=== PATIENT | male | born 1990 | race Caucasian/White ===

== ENCOUNTER 2016-05-15 09:48 | Emergency (ER) | payer MEDICAID ==
[2016-05-15 09:56] VITALS: BP 146/98
--- NOTE | 2016-05-15 10:01 | ED Physician Documentation ---
PD HPI LOWER EXT INJURY - Stated complaint Stated Complaint: LEFT LEG PX - Chief complaint Chief Complaint: Ext Problem - History obtained from History obtained from: Patient - History of Present Illness PD HPI LOW EXT INJURY LOCATION: Left, Lower leg, Calf Type of injury: Other (he walked from [facility] to [facility] yesterday and into night. Pain in left lower leg developed later. Some slips in mud while walking but no fall, notable twist.). No: Fall, Twist Where injury occurred: Street Timing - details: Gradual onset, Still present Improved by: No: Rest Worsened by: Moving, Palpating Associated symptoms: No: Weakness, Numbness, Tingling Similar symptoms before: Has not had sx before Recently seen: Not recently seen Review of Systems Constitutional: denies: Fever, Chills Skin: denies: Rash, Lesions Neurologic: denies: Focal weakness, Numbness PD PAST MEDICAL HISTORY - Past Surgical History Past Surgical History: No - Present Medications Home Medications: Ambulatory Orders Medication Instructions Recorded Confirmed Acetaminophen [Tylenol] 650 mg PO Q6H PRN #100 tablet 05/15/16 Naproxen [Naprosyn] 500 mg PO BID #20 tablet 05/15/16 Tramadol HCl 50 mg PO Q6H PRN #20 tablet 05/15/16 - Allergies Allergies/Adverse Reactions: Allergies Allergy/AdvReac Type Severity Reaction Status Date / Time acetaminophen [From Vicodin] AdvReac Headache Verified 05/15/16 09:52 hydrocodone bitartrate * AdvReac Headache Verified 05/15/16 09:52 [From Vicodin] - Social History Does the pt smoke?: Yes Smoking Status: Current every day smoker Does the pt drink ETOH?: Yes Does the pt have substance abuse?: No Substance Use and Type: Marijuana - Immunizations Immunizations are current?: Yes PD ED PE NORMAL - Vitals Vital signs reviewed: Yes - General General: Alert and oriented X 3, No acute distress, Well developed/nourished - Cardiac Cardiac: RRR, No murmur - Respiratory Respiratory: Clear bilaterally - Derm Derm: Normal color, Warm and dry, No rash - Extremities Extremities: Other (calf and lower leg tender all around. Some tender medial knee and infrapatellar. No edema. There is calf tenderness but also anterior and lateral areas too. He is able to move ankle and toes. right leg mildly tender in comparison. ) - Neuro Neuro: No motor deficit, No sensory deficit, Other (good color and cap refill in toes/foot/ankle. No edema. ) Results - Vitals Vitals: Vital Signs - 24 hr 05/15/16 09:53 Temperature 36.9 C Heart Rate 115 H Respiratory 18 Rate Blood Pressure 146/98 H O2 Saturation 100 Oxygen O2 Source Room air - Rads (name of study) tib/fib Radiology: Prelim report reviewed, EMP read contemporaneously (no fractures) PD MEDICAL DECISION MAKING - ED course Complexity details: considered differential (he walked from [facility] to [facility] overnight and has left leg pain in lower leg. Good color, pulses, sensation and cap refill, as well as toe movement, so does not seem like compartment syndrome. Surprisingly his right leg does not hurt that much. Xray okay. Presume muscle inflammation and/or strain. Has some knee pain on stress testing but not laxity. ), d/w patient Departure - Departure Disposition: 01 Home, Self Care Clinical Impression: Muscle strain, lower leg Qualifiers: Encounter type: initial encounter Laterality: left Qualified Code(s): S86.912A - Strain of unspecified muscle(s) and tendon(s) at lower leg level, left leg, initial encounter Condition: Stable Record reviewed to determine appropriate education?: Yes Instructions: ED Strain Muscle Ext Prescriptions: Naproxen [Naprosyn] 500 mg PO BID #20 tablet Tramadol HCl 50 mg PO Q6H PRN #20 tablet PRN Reason: Pain Acetaminophen [Tylenol] 650 mg PO Q6H PRN #100 tablet PRN Reason: PRN PAIN &/OR FEVER Comments: Rest for couple of days with less walking. Naproxen twice daily for 7-10 days. Add Tylenol and/or Tramadol for pain as needed. Recheck if not improved over the next few days. Xray is okay, but there is still the muscle strain and inflammation from the walking. Could also be some element of knee cartilage problem. This will typically improve as well with time. Discharge Date/Time: 05/15/16 11:46
[2016-05-15] MEDS ORDERED: IBUPROFEN 600 MG TABLET PO ONE (10:14)
[2016-05-15] MEDS ORDERED: traMADol 50 MG TABLET PO ONE (10:15)
[2016-05-15] MEDS: IBUPROFEN 600 MG TABLET PO STA (10:18)
[2016-05-15] MEDS: traMADol 50 MG TABLET PO STA (10:18)
--- NOTE | 2016-05-15 11:39 | XRAY Preliminary Report ---
Exam: XR Tib/Fib LT IMPRESSION: Negative tibia/fibula radiography. [facility] SITE ID: [id number]
--- NOTE | 2016-05-15 11:41 | XRAY Report ---
EXAM: LEFT TIBIA/FIBULA RADIOGRAPHY EXAM DATE: 05/15/2016 11:13 AM. CLINICAL HISTORY: Left lower leg pain after long walking. COMPARISON: None. TECHNIQUE: 2 views. FINDINGS: Bones: Normal. No fracture or bone lesion. Joints: The visualized knee and ankle joints are normal. No effusions. Soft Tissues: No focal soft tissue abnormalities are seen. IMPRESSION: Negative tibia/fibula radiography. [facility] Referring Provider Line: [phone] SITE ID: [id number]
== END 2016-05-15 11:46 | disposition home or self-care (01) ==
LOC: ED 09:48
DX: F17.200 Nicotine dependence, unspecified, uncomplicated (principal); S86.912A Strain of unspecified muscle(s) and tendon(s) at lower leg level, left leg, initial encounter; X50.3XXA Overexertion from repetitive movements, initial encounter; Y93.01 Activity, walking, marching and hiking
CPT/HCPCS: 99283

== ENCOUNTER 2017-05-06 12:57 | Emergency (ER) | payer MEDICAID ==
[2017-05-06 13:08] VITALS: BP 115/77
--- NOTE | 2017-05-06 13:17 | ED Physician Documentation ---
PD HPI WOUND RECHECK - Stated complaint Stated Complaint: DOG BITE/EAR - Chief complaint Chief Complaint: Wound - Histroy obtained from History obtained from: Patient - History of Present Illness Location: Other (About 25 hours ago he "got in a disagreement over a piece of chicken" with his friends dog. And has multiple puncture wounds, both hands in the right ear. His tetanus is up-to-date and the dog is healthy and fully immunized.) Review of Systems Constitutional: denies: Fever, Chills Skin: denies: Rash, Lesions Musculoskeletal: denies: Neck pain, Back pain PD PAST MEDICAL HISTORY - Past Medical History Past Medical History: Yes - Past Surgical History Past Surgical History: No - Present Medications Home Medications: Ambulatory Orders Medication Instructions Recorded Confirmed Acetaminophen [Tylenol] 650 mg PO Q6H PRN #100 tablet 05/15/16 Naproxen [Naprosyn] 500 mg PO BID #20 tablet 05/15/16 Tramadol HCl 50 mg PO Q6H PRN #20 tablet 05/15/16 Amox/Clav 875/125 [Augmentin] 1 each PO Q12H #14 tablet 05/06/17 Oxycodone HCl/Acetaminophen 1 - 2 tab PO Q4H PRN #10 tablet 05/06/17 [Percocet 5-325 mg Tablet] - Allergies Allergies/Adverse Reactions: Allergies Allergy/AdvReac Type Severity Reaction Status Date / Time hydrocodone bitartrate * AdvReac Mild Nausea Verified 05/06/17 13:08 [From Vicodin] acetaminophen [From Vicodin] AdvReac Headache Verified 05/15/16 09:52 - Social History Does the pt smoke?: Yes Smoking Status: Current every day smoker Does the pt drink ETOH?: Yes Does the pt have substance abuse?: Yes Substance Use and Type: Marijuana - Immunizations Immunizations are current?: Yes PD ED PE NORMAL - Vitals Vital signs reviewed: Yes - General General: Alert and oriented X 3, No acute distress - HEENT HEENT: PERRL, EOMI, Other (There are multiple puncture wounds in the right ear, nothing that needs suturing especially given how old they are. The wounds were irrigated and cleansed during examination.) - Extremities Extremities: Other (He has some very shallow scrapes over the dorsum of the left hand. He has a puncture wound on the right thumb near the interphalangeal joint that is tender, but relatively good range of motion.) - Neuro Neuro: Alert and oriented X 3, Normal speech - Psych Psych: Normal mood, Normal affect Results - Vitals Vitals: Vital Signs - 24 hr 05/06/17 13:03 Temperature 36.9 C Heart Rate 89 Respiratory 18 Rate Blood Pressure 115/77 O2 Saturation 99 Oxygen O2 Source Room air - Rads (name of study) R thumb XR Radiology: EMP read contemporaneously (WNL) Departure - Departure Disposition: 01 Home, Self Care Clinical Impression: Dog bite of multiple sites Condition: Good Record reviewed to determine appropriate education?: Yes Instructions: ED Bite Animal General Prescriptions: Amox/Clav 875/125 [Augmentin] 1 each PO Q12H #14 tablet Oxycodone HCl/Acetaminophen [Percocet 5-325 mg Tablet] 1 - 2 tab PO Q4H PRN #10 tablet PRN Reason: Pain Comments: Wash all the wounds with soap and water twice a day. Return if worse or if developing increasing pain, fevers, redness, swelling, or drainage. Discharge Date/Time: 05/06/17 14:18
[2017-05-06] MEDS ORDERED: oxyCOD/ACETAMIN 5 MG/325 MG TABLET PO STA (13:35)
[2017-05-06] MEDS ORDERED: AMOX/CLAV 875 MG/125 MG TABLET PO STA (13:36)
--- NOTE | 2017-05-06 14:14 | XRAY Preliminary Report ---
Exam: XR FINGER(S) RT IMPRESSION: No osseous abnormality. [facility] SITE ID: [id number]
--- NOTE | 2017-05-06 14:15 | XRAY Report ---
EXAM: RIGHT FIRST DIGIT RADIOGRAPHY EXAM DATE: 05/06/2017 01:57 PM. CLINICAL HISTORY: Puncture at IP joint (dog bite). COMPARISON: None. TECHNIQUE: 3 views. FINDINGS: Bones: Normal. No fracture or bone lesion. Joints: Normal. No subluxations. Soft Tissues: Mild soft tissue swelling. No radiopaque foreign body. IMPRESSION: No osseous abnormality. [facility] Referring Provider Line: [phone] SITE ID: [id number]
== END 2017-05-06 14:18 | disposition home or self-care (01) ==
LOC: ED 12:57
DX: S01.351A Open bite of right ear, initial encounter (principal); S61.051A Open bite of right thumb without damage to nail, initial encounter; S60.512A Abrasion of left hand, initial encounter; W54.0XXA Bitten by dog, initial encounter; F17.200 Nicotine dependence, unspecified, uncomplicated
CPT/HCPCS: 73140; 99283; A9270

== ENCOUNTER 2019-06-22 07:31 | Emergency (ER) | payer MEDICAID ==
--- NOTE | 2019-06-22 08:12 | ED Physician Documentation ---
PD HPI HEAD INJURY - Stated complaint Stated Complaint: HEAD INJ - Chief complaint Chief Complaint: Laceration - History obtained from History obtained from: Patient - History of Present Illness Mechanism of head injury: Blow (states a large canopy pole fell and struck him on scalp, causing lac. He did clean it. It appeared still apart edges today, so friends encouraged him to get eval.) Timing - onset: Yesterday Location of injury: Left, Front Associated symptoms: No: LOC, AMS, Nausea / vomiting Symptoms worsen with: Palpation Contributing factors: No: Anticoagulated Similar symptoms before: Has not had sx before Review of Systems Eyes: denies: Decreased vision Skin: reports: Laceration (s) Neurologic: denies: Focal weakness, Numbness, Altered mental status, Headache PD PAST MEDICAL HISTORY - Past Medical History Past Medical History: No Cardiovascular: None Respiratory: None Neuro: None Endocrine/Autoimmune: None GI: None : None HEENT: None Psych: None Musculoskeletal: None Derm: None - Past Surgical History Past Surgical History: No - Present Medications Home Medications: Ambulatory Orders Medication Instructions Recorded Confirmed Acetaminophen [Tylenol] 650 mg PO Q6H PRN #100 tablet 05/15/16 Naproxen [Naprosyn] 500 mg PO BID #20 tablet 05/15/16 Tramadol HCl 50 mg PO Q6H PRN #20 tablet 05/15/16 Amox/Clav 875/125 [Augmentin] 1 each PO Q12H #14 tablet 05/06/17 Oxycodone HCl/Acetaminophen 1 - 2 tab PO Q4H PRN #10 tablet 05/06/17 [Percocet 5-325 mg Tablet] - Allergies Allergies/Adverse Reactions: Allergies Allergy/AdvReac Type Severity Reaction Status Date / Time hydrocodone bitartrate * AdvReac Mild Nausea Verified 05/06/17 13:08 [From Vicodin] - Social History Does the pt smoke?: Yes Smoking Status: Current every day smoker Does the pt drink ETOH?: Yes Does the pt have substance abuse?: Yes - Immunizations Immunizations are current?: Yes PD ED PE NORMAL - Vitals Vital signs reviewed: Yes - General General: Alert and oriented X 3, No acute distress, Well developed/nourished - HEENT HEENT: PERRL, EOMI, Other (Left frontoparietal area with a 2 cm laceration full- thickness through the scalp without any foreign body or active bleeding. The edge is slightly abraded to one side. There is no dirt or such in the wound. No redness or swelling. 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 No: FB identified Skin layer closure: Benjy Other: Patient tolerated well, No complications, Tetanus UTD Complexity: Simple PD MEDICAL DECISION MAKING - ED course Complexity details: considered differential (injury yesterday but wound was cleaned and appears clean now, so I did not feel it was too long for closure. ), d/w patient Departure - Departure Disposition: 01 Home, Self Care Clinical Impression: Head contusion Qualifiers: Encounter type: initial encounter Contusion of head detail: scalp Qualified Code(s): S00.03XA - Contusion of scalp, initial encounter Scalp laceration Qualifiers: Encounter type: initial encounter Qualified Code(s): S01.01XA - Laceration without foreign body of scalp, initial encounter Condition: Stable Record reviewed to determine appropriate education?: Yes Instructions: ED Laceration Scalp Stitch Or Stap Comments: It is okay to wash and shower. Clean off the wound twice a day with soap and water, or peroxide and water. Apply some antibiotic ointment to it to keep it moist. Also to watch for signs of infection such as purulence, redness or increasing pain. Return to your primary care or the ER at the specified time for suture removal. Staple removal 9 or 10 days Discharge Date/Time: 06/22/19 08:46
[2019-06-22] MEDS ORDERED: IBUPROFEN 600 MG TABLET PO STA (08:18)
[2019-06-22] MEDS ORDERED: ACETAMINOPHEN 325 MG TABLET PO STA (08:18)
[2019-06-22 08:45] VITALS: BP 122/74
== END 2019-06-22 08:46 | disposition home or self-care (01) ==
LOC: ED 07:31
DX: S01.01XA Laceration without foreign body of scalp, initial encounter (principal); W20.8XXA Other cause of strike by thrown, projected or falling object, initial encounter; F17.200 Nicotine dependence, unspecified, uncomplicated
CPT/HCPCS: 12001; 99282; 99284; A9270

== ENCOUNTER 2021-05-21 01:11 | Outpatient (CLI) | payer MEDICAID | END 2021-05-21 01:12 | disposition left against medical advice (07) | LOC: EMS 01:11 | DX: S01.81XA Laceration without foreign body of other part of head, initial encounter (principal); Y00.XXXA Assault by blunt object, initial encounter; Y92.009 Unspecified place in unspecified non-institutional (private) residence as the place of occurrence of the external cause ==

== ENCOUNTER 2023-01-19 16:53 | Emergency (ER) | payer MEDICAID ==
[2023-01-19 17:09] VITALS: BP 128/96; O2SAT 99
--- NOTE | 2023-01-19 17:12 | ED Physician Documentation ---
PD HPI SKIN - Stated complaint Stated Complaint: SPIDER BITE LT LEG - Chief complaint Chief Complaint: Wound - History obtained from History obtained from: Patient - History of Present Illness Timing - onset: How many weeks ago (1) Timing - duration: Weeks (1) Timing - details: Gradual onset, Still present Location: LLE (he had small sore left anterior lower leg. He considered possible spider bite but did not know mechanism for sure. Has had increasing redness, swelling, and pain in the area, with redness extending proximal anterior leg. NO fevers.) Quality / character: Painful, Discolored (red), Swelling, Draining Associated symptoms: No: Fever, Myalgias, N/V/D Similar symptoms before: No diagnosis (has had some skin sores that slowly heal without level of current assessment nor meds.) Recently seen: Not recently seen Review of Systems Constitutional: reports: Myalgias. denies: Fever, Chills Nose: denies: Rhinorrhea / runny nose, Congestion Throat: denies: Sore throat Respiratory: denies: Cough GI: denies: Nausea, Vomiting, Diarrhea PD PAST MEDICAL HISTORY - Past Medical History Past Medical History: No Cardiovascular: None Respiratory: None Neuro: None Endocrine/Autoimmune: None GI: None : None HEENT: None Psych: None Musculoskeletal: None Derm: None - Past Surgical History Past Surgical History: No - Present Medications Home Medications: Ambulatory Orders Medication Instructions Recorded Confirmed Doxycycline Hyclate 100 mg PO BID 7 Days #14 cap 01/19/23 Meloxicam [Mobic] 7.5 mg PO BID 10 Days #20 tablet 01/19/23 Mupirocin 2% Oint [Bactroban 2% 1 applic TOP TID #15 gm 01/19/23 Oint] Oxycodone HCl/Acetaminophen 1 each PO Q6H PRN #12 tablet 01/19/23 [Percocet 5-325 mg Tablet] cephALEXin [Keflex] 500 mg PO TID #20 cap 01/19/23 - Allergies Allergies/Adverse Reactions: Allergies Allergy/AdvReac Type Severity Reaction Status Date / Time hydrocodone bitartrate * AdvReac Mild Nausea Verified 01/19/23 17:01 [From Vicodin] - Social History Does the pt smoke?: Yes Smoking Status: Current every day smoker Does the pt drink ETOH?: Yes Does the pt have substance abuse?: Yes - Immunizations Immunizations are current?: Yes PD ED PE NORMAL - Vitals Vital signs reviewed: Yes - General General: Alert and oriented X 3, Well developed/nourished - Cardiac Cardiac: RRR, No murmur - Respiratory Respiratory: No respiratory distress, Clear bilaterally - Abdomen Abdomen: Soft, Non tender - Derm Derm: Normal color, Warm and dry - Extremities Extremities: Other (left anterior lower leg with 2-3 cm diameter sized skin uldceration to fatty tissue layer, with some weeping clear to yellow discharge. Redness with swelling and tender in lower leg anterolateral. ). No: No calf tenderness / cord (there is edema in lower leg, mostly anterior, but some posterior with some calf tenderness. ) - Neuro Neuro: Alert and oriented X 3, No motor deficit, No sensory deficit, Normal speech Results - Vitals Vitals: Vital Signs - 24 hr 01/19/23 17:01 Temperature 36.5 C Heart Rate 100 Respiratory 16 Rate Blood Pressure 128/96 H O2 Saturation 99 Oxygen O2 Source Room air - Labs Labs: Microbiology 01/19/23 17:40 Wound Culture - Preliminary Leg - Left Laboratory Tests 01/19/23 01/19/23 17:58 17:58 WBC 9.8 RBC 4.71 Hgb 14.0 Hct 42.8 MCV 90.9 MCH 29.7 MCHC 32.7 RDW 12.4 Plt Count 239 MPV 10.2 Neut # (Auto) 6.1 Lymph # (Auto) 2.5 [place] # (Auto) 0.9 Eos # (Auto) 0.2 Baso # (Auto) 0.0 Absolute Nucleated RBC 0.00 Nucleated RBC % 0.0 Sodium 135 Potassium 4.0 Chloride 101 Carbon Dioxide 29 Anion Gap 5.0 L BUN 14 Creatinine 0.9 Estimated GFR (MDRD) 98 Glucose 94 Calcium 9.7 Total Creatine Kinase 182 - Rads (name of study) duplex left leg Relevant Findings:: Prelim report reviewed (no DVT. ) PD Medical Decision Making - ED course Complexity details: considered differential, d/w patient ED course: skin wound anterior lower leg with cellulitic changes surrounding. No abscess fluid collection. Has some weeping clearer fluid. Tender,s welling and some calf tenderness as well as mainly anterior. Has some wounds superficially to left upper arm about 2 cm diameter. has normal CK so not appearing muscle level of involvement. WBC notWill treat with Keflex and Doxy pending initial cultures. elevated. Duplex without DVT. Normal sensation and movement distally and good pulses. Departure - Departure Disposition: 01 Home, Self Care Clinical Impression: Abrasion of lower leg with infection, Cellulitis of lower leg Condition: Stable Record reviewed to determine appropriate education?: Yes Instructions: ED Staph Infec Abx Tx Only, ED Infec Skin Cellulitis Prescriptions: Mupirocin 2% Oint [Bactroban 2% Oint] 1 applic TOP TID #15 gm Doxycycline Hyclate 100 mg PO BID 7 Days #14 cap cephALEXin [Keflex] 500 mg PO TID #20 cap Meloxicam [Mobic] 7.5 mg PO BID 10 Days #20 tablet Oxycodone HCl/Acetaminophen [Percocet 5-325 mg Tablet] 1 each PO Q6H PRN #12 tablet PRN Reason: pain Comments: You do have an infection at the site of the wound on the lower leg. Cleanse the area with soap and water once or twice daily and apply some antibiotic ointment such as bacitracin or Neosporin. You can use the mupirocin which is a prescription. Use meloxicam anti-inflammatory twice daily with food to help with pain and inflammation. Elevate and rest your leg often to reduce swelling. Use Tylenol 500 to 650 mg 4 times daily for pain. Use oxycodone/acetaminophen if needed for worse pain. We did do a culture of the area and that will result in a couple of days. When the result is then we should be able to tailor the antibiotic choice to 1 anti biotic or the other but for now I would have you take both doxycycline and cephalexin until we can verify what the germ is causing your infection. We did do some blood test here there is no signs of it being in extended down into the muscle area or muscle breakdown. We did an ultrasound to make sure there is no blood clots. I sent your prescription to the [facility] pharmacy. We are sending you home with some antibiotics and pain medicine for tonight. I am prescribing a short course of narcotic pain medication for you. These are potentially dangerous and addictive medications that should be used carefully. These medications may constipate you. Take an [id number] stool softener such as docusate twice daily with plenty of water while taking these medications. If you go 24 hours without a bowel movement, take [id number] MiraLAX, per package instructions. Do not drink or drive while taking these medications. If you received narcotic or sedating medications while in the emergency department do not drive for 24 hours. Store this medication in a safe, secure place and out of reach of children. It is a violation of federal law to give or sell this medication to another pe rson or to use in a manner other than prescribed. The ED will not refill narcotic prescriptions, including prescriptions lost or stolen. You can dispose of unwanted medications at the [facility]'s office or at several pharmacies such as [facility]. Forms: PCP List Discharge Date/Time: 01/19/23 19:50
[2023-01-19] MEDS ORDERED: oxyCODONE 5 MG TABLET PO STA (17:43)
[2023-01-19] MEDS ORDERED: cephALEXin 250 MG CAPSULE PO STA (17:45)
[2023-01-19] MEDS ORDERED: IBUPROFEN 600 MG TABLET PO STA (17:45)
[2023-01-19] MEDS ORDERED: DOXYCYCLINE 100 MG TABLET PO STA (17:45)
[2023-01-19 18:08] LABS: BASOPHILS % (AUTO) 0.4 %; EOSINOPHILS # (AUTO) 0.2 10^3/uL (0.0-0.7); EOSINOPHILS % (AUTO) 1.7 %; HCT - HEMATOCRIT 42.8 % (42.0-52.0); LYMPHOCYTES # (AUTO) 2.5 10^3/uL (1.5-3.5); LYMPHOCYTES % (AUTO) 25.7 %; MEAN CORPUSCULAR HEMOGLOBIN 29.7 pg (27.0-31.0); MEAN CORPUSCULAR HGB CONC 32.7 g/dL (32.0-36.0); MEAN CORPUSCULAR VOLUME 90.9 fL (80.0-94.0); MEAN PLATELET VOLUME 10.2 fL (7.4-11.4); MONOCYTES # (AUTO) 0.9 10^3/uL (0.0-1.0); MONOCYTES % (AUTO) 9.2 %; NEUTROPHILS # (AUTO) 6.1 10^3/uL (1.5-6.6); NEUTROPHILS % (AUTO) 62.8 %; PLT - PLATELET COUNT 239 10^3/uL (130-450); RED BLOOD COUNT 4.71 10^6/uL (4.70-6.10); RED CELL DISTRIBUTION WIDTH 12.4 % (12.0-15.0); WHITE BLOOD COUNT 9.8 x10^3/uL (4.8-10.8)
[2023-01-19 18:19] LABS: CALCIUM 9.7 mg/dL (8.5-10.3); CREATININE 0.9 mg/dL (0.6-1.3)
[2023-01-19] MEDS ORDERED: CEPHALEXIN 250 MG Prepack 8 CAP BOTTLE PO STA (18:34)
[2023-01-19] MEDS ORDERED: oxyCODONE/ACET 5/325 Prepack 4 PO STA (18:34)
--- NOTE | 2023-01-19 20:01 | Ultrasound Report ---
PROCEDURE: Duplex Ext Veins Left INDICATIONS: lower leg infection, but calf pain/tender TECHNIQUE: Real-time imaging, as well as color and pulse Doppler interrogation, were performed of the lower extr emity deep veins from the inguinal ligament to the popliteal fossa. Attempted visualization of the ca lf veins was performed. COMPARISON: None. FINDINGS: The deep veins are normally compressible, and free of intraluminal thrombus. Color and pu lse Doppler demonstrate normal phasic intraluminal flow. There is normal augmentation response to di stal compression maneuver. Of note, the left peroneal vein was not able to be interrogated secondary to overlying edema. Incidental reactive lymph nodes identified in the left inguinal region. IMPRESSION: No deep venous thrombosis of the visualized lower extremity. Reviewed by: Adal Mcmanus MD on 01/19/2023 8:00 PM [facility] Approved by: Adal Mcmanus MD on 01/19/2023 8:00 PM [facility] Station ID: [id number]
== END 2023-01-19 19:50 | disposition home or self-care (01) ==
LOC: ED 16:53
DX: S80.812A Abrasion, left lower leg, initial encounter (principal); L03.116 Cellulitis of left lower limb; X58.XXXA Exposure to other specified factors, initial encounter; F17.200 Nicotine dependence, unspecified, uncomplicated; Z79.899 Other long term (current) drug therapy
CPT/HCPCS: 36415; 80048; 82550; 85025; 87070; 87077; 87181; 87205; 93971; 99284; A9270

== ENCOUNTER 2023-04-28 08:00 | Outpatient (CLI) | payer MEDICAID ==
[2023-04-28 14:36] LABS: BASOPHILS # (AUTO) 0.1 10^3/uL (0.0-0.1); BASOPHILS % (AUTO) 0.7 %; EOSINOPHILS # (AUTO) 0.2 10^3/uL (0.0-0.7); EOSINOPHILS % (AUTO) 1.8 %; HCT - HEMATOCRIT 45.3 % (42.0-52.0); HGB - HEMOGLOBIN 14.7 g/dL (14.0-18.0); LYMPHOCYTES # (AUTO) 2.6 10^3/uL (1.5-3.5); LYMPHOCYTES % (AUTO) 26.3 %; MEAN CORPUSCULAR HEMOGLOBIN 29.3 pg (27.0-31.0); MEAN CORPUSCULAR HGB CONC 32.5 g/dL (32.0-36.0); MEAN CORPUSCULAR VOLUME 90.2 fL (80.0-94.0); MEAN PLATELET VOLUME 11.5 fL (7.4-11.4); MONOCYTES # (AUTO) 0.8 10^3/uL (0.0-1.0); MONOCYTES % (AUTO) 7.6 %; NEUTROPHILS # (AUTO) 6.3 10^3/uL (1.5-6.6); NEUTROPHILS % (AUTO) 63.2 %; PLT - PLATELET COUNT 202 10^3/uL (130-450); RED BLOOD COUNT 5.02 10^6/uL (4.70-6.10); RED CELL DISTRIBUTION WIDTH 12.5 % (12.0-15.0); WHITE BLOOD COUNT 9.9 x10^3/uL (4.8-10.8)
[2023-04-28 15:14] LABS: ALBUMIN 4.3 g/dL (3.2-5.5); ALBUMIN/GLOBULIN RATIO 1.7 (1.0-2.2); BILIRUBIN,TOTAL 0.4 mg/dL (0.2-1.0); CALCIUM 9.4 mg/dL (8.5-10.3); CREATININE 0.8 mg/dL (0.6-1.3); POTASSIUM 4.2 mmol/L (3.5-4.5); TOTAL PROTEIN 6.9 g/dL (6.4-8.9)
[2023-04-28 15:49] LABS: THYROID STIMULATING HORMONE 2.6 uIU/mL (0.34-5.60)
== END 2023-04-28 23:59 | disposition home or self-care (01) ==
LOC: LAB.R 08:00
PROVIDERS: ATTEND Registered Nurse
DX: R68.89 Other general symptoms and signs (principal); Z13.228 Encounter for screening for other metabolic disorders; R78.71 Abnormal lead level in blood; R94.6 Abnormal results of thyroid function studies
CPT/HCPCS: 36415; 80053; 84443; 85025; 85379

== ENCOUNTER 2023-10-27 22:12 | Outpatient (CLI) | payer MEDICAID | END 2023-10-27 22:13 | disposition critical access hospital (66) | LOC: EMS 22:12 | DX: R10.9 Unspecified abdominal pain (principal); M79.10 Myalgia, unspecified site; F50.9 Eating disorder, unspecified; R11.10 Vomiting, unspecified | CPT/HCPCS: A0425; A0429; A0999 ==

== ENCOUNTER 2023-10-27 22:33 | Emergency (ER) | payer MEDICAID ==
[2023-10-27 23:07] VITALS: O2SAT 95
[2023-10-27] MEDS: ACETAMINOPHEN 325 MG TABLET PO STA (23:20)
[2023-10-27] MEDS: ONDANSETRON ODT 4 MG TABLET TL STA (23:20)
[2023-10-27] MEDS: IBUPROFEN 600 MG TABLET PO STA (23:20)
--- NOTE | 2023-10-27 23:37 | ED Physician Documentation ---
History of Present Illness - Stated complaint Stated Complaint: FLU LIKE SYMP - Chief complaint Chief Complaint: MHE - History obtained from History obtained from: Patient - Additonal information Additional information: The pt is [facility] to the ED for CC of fever, myalgias, and pain throughout his entire back and neck for "weeks". He cannot be more specific. He denies N/V/D. No cough. No urinary sx. He thinks he may be dehydrated, but states he absolutely does not want IV. No pain in chest or abdomen. No other complaints at this time. PD PAST MEDICAL HISTORY - Past Medical History Past Medical History: Yes Cardiovascular: None Respiratory: None Neuro: None Endocrine/Autoimmune: None GI: None : None HEENT: None Psych: Depression, Panic attacks Musculoskeletal: None Derm: None - Past Surgical History Past Surgical History: No - Present Medications Home Medications: Ambulatory Orders Medication Instructions Recorded Confirmed No Known Home Medications 10/27/23 10/27/23 - Allergies Allergies/Adverse Reactions: Allergies Allergy/AdvReac Type Severity Reaction Status Date / Time hydrocodone bitartrate * AdvReac Mild Nausea Verified 10/27/23 22:50 [From Vicodin] - Social History Does the pt smoke?: Yes Smoking Status: Current every day smoker Does the pt drink ETOH?: Yes Does the pt have substance abuse?: Yes - Immunizations Immunizations are current?: Yes - POLST Patient has POLST: No PD ED PE NORMAL - Vitals Vital signs reviewed: Yes - General General: No acute distress, Well developed/nourished, Other (Alert, grossly intact.) - HEENT HEENT: Atraumatic, PERRL, EOMI, Moist mucous membranes - Neck Neck: Supple, no meningeal sign - Cardiac Cardiac: No murmur, Other (Mild tachycardia, regular) - Respiratory Respiratory: No respiratory distress, Clear bilaterally - Abdomen Abdomen: Soft, Non tender, Non distended - Derm Derm: Normal color, Warm and dry, No rash - Extremities Extremities: No deformity - Neuro Neuro: Other (Alert, grossly intact) - Psych Psych: Normal mood, Normal affect Results - Vitals Vitals: Oxygen O2 Source Room air - Labs Labs: Laboratory Tests 10/27/23 22:53 Nasal Adenovirus (PCR) NOT DETECTED Nasal B. parapertussis DNA (PCR) NOT DETECTED Nasal Coronavir 229E PCR NOT DETECTED Nasal Coronavir HKU1 PCR NOT DETECTED Nasal Coronavir NL63 PCR NOT DETECTED Nasal Coronavir OC43 PCR NOT DETECTED Nasal Enterovir/Rhinovir PCR NOT DETECTED Nasal Influenza B PCR NOT DETECTED Nasal Influenza A PCR NOT DETECTED Nasal Parainfluen 1 PCR NOT DETECTED Nasal Parainfluen 2 PCR NOT DETECTED Nasal Parainfluen 3 PCR NOT DETECTED Nasal Parainfluen 4 PCR NOT DETECTED Nasal RSV (PCR) NOT DETECTED Nasal B.pertussis DNA PCR NOT DETECTED Nasal C.pneumoniae (PCR) NOT DETECTED Marlon Human Metapneumo PCR NOT DETECTED Nasal M.pneumoniae (PCR) NOT DETECTED Nasal SARS-CoV-2 (PCR) NOT DETECTED PD Medical Decision Making - ED course Complexity details: reviewed results, re-evaluated patient, considered differential, d/w patient ED course: The pt was somewhat hostile toward staff upon arrival, and I discussed with him that this is not appropriate. After this, he became more respectful, though he did decline blood draw after initially agreeing to it. I explained why I would like to administer IV fluids, but the pt was adamant that he did not want an IV, and stated he could drink water instead. I was only able to do CXR and resp PCR panel, due to the limitations as to what the pt was willing to have done. XR was negative, as was PCR panel. When the pt's friend arrived, the pt became hostile toward staff again, and started pulling monitor leads off, stating he wanted to leave. I have discussed his results with him. For now, the pt is refusing any further work-up in the ED, and is stable for d/c. We have discussed the usual indications for return. Departure - Departure Disposition: 01 Home, Self Care Clinical Impression: Febrile illness Condition: Stable Instructions: ED Fever Unconf Cause Comments: Your chest x-ray is clear. A viral panel is pending at this time and will be back in some hours. You had a very low-grade fever when you came in and we offered you ibuprofen and Tylenol for this. Your heart rate was up a little bit, but your blood pressure and oxygen look good. Unfortunately, we have not been able to do any blood work on you or give you IV fluids because you have declined to have this done. As such, we cannot be more specific about what is causing your fever. If you wish to have further evaluation, you may return to the emergency department anytime. Forms: PCP List Discharge Date/Time: 10/27/23 23:40
--- NOTE | 2023-10-27 23:58 | XRAY Report ---
PROCEDURE: Chest 1V INDICATIONS: cough/fever TECHNIQUE: One view of the chest was acquired. COMPARISON: None. FINDINGS: Surgical changes and devices: None. Lungs and pleura: No pleural effusions or pneumothorax. Lungs are clear. Mediastinum: Mediastinal contours appear normal. Heart size is normal. Bones and chest wall: No suspicious bony lesions. Overlying soft tissues appear unremarkable. IMPRESSION: No acute cardiopulmonary process. Reviewed by: Johnathan Amado MD on 10/27/2023 11:57 PM PDT Approved by: Johnathan Amado MD on 10/27/2023 11:57 PM PDT Station ID: [id number]
[2023-10-28 00:01] LABS: B. PARAPERTUSSIS- RESP PCR PAN NOT DETECTED; B. PERTUSSIS- RESP PCR PANEL NOT DETECTED; C. PNEUMONIAE- RESP PCR PANEL NOT DETECTED; CORONAVIRUS 229E-RESP PCR NOT DETECTED; CORONAVIRUS HKU1-RESP PCR NOT DETECTED; CORONAVIRUS NL63-RESP PCR NOT DETECTED; CORONAVIRUS OC43-RESP PCR NOT DETECTED; HUMAN METAPNEUMOVIRUS NOT DETECTED; INFLUENZA A- RESP PCR PANEL NOT DETECTED; INFLUENZA B - RESP PCR PANEL NOT DETECTED; M. PNEUMONIAE- RESP PCR PANEL NOT DETECTED; PARAINFLUENZA VIRUS 1 NOT DETECTED; PARAINFLUENZA VIRUS 2 NOT DETECTED; PARAINFLUENZA VIRUS 3 NOT DETECTED; PARAINFLUENZA VIRUS 4 NOT DETECTED; RHINOVIRUS/ENTEROVIRUS NOT DETECTED; RSV- RESP PCR PANEL NOT DETECTED; SARS-CoV-2 -RESP PCR PANEL NOT DETECTED
[2023-10-28 01:42] VITALS: BP 120/72
== END 2023-10-27 23:40 | disposition home or self-care (01) ==
LOC: EDUNIT# → ED 22:33
DX: R50.9 Fever, unspecified (principal); F17.200 Nicotine dependence, unspecified, uncomplicated
CPT/HCPCS: 80053; 83690; 85025; 87633; 99283; 99284